=== PATIENT | male | born 1990 | race Caucasian/White ===

== ENCOUNTER 2016-11-14 10:21 | Emergency (ER) | payer OTHER ==
[~2016-11-14] VITALS: Ht 185.4 cm; Wt 113.4 kg
[~2016-11-14 10:21] MED LIST: ADDERALL 10 MG10 MG PO; CELEXA20 MG PO; ENDOCET 5-3251 EACH PO; FLONASE 0.05%50 MCG NASAL; IBUPROFEN 600600 M1 PO; INDOCIN25 MG/5 ML PO; KEPPRA; LIDODERM 5%1 PATC1 TRANSDERM; LOPRESSOR 50 MG50 M1 PO; MEDLISTUNAVAIL IV; MEROPENEM 1 GM V1 GM IV; METHADONE HCL5 MG PO; MOBIC15 MG PO; MUCINEX TA600 MG/TA2 PO; NAPROSYN500 MG PO; NOHOMEMEDICATIONS; NORCO 5-325 TA1 EACH PO; NORFLEX100 MG PO; TRAMADOL 50 MG50 MG PO; TYLENOL325 MG PO; ULTRAM 50MG TAB50 MG PO
[2016-11-14 11:14] LABS: ABSOLUTE NEUTROPHILS 7.4 thou/uL (1.4-8.2); BASOPHILS 0.8 % (0.0-2.0); EOSINOPHILS 2.2 % (0.0-3.0); HEMATOCRIT 47.8 % (42.0-52.0); HEMOGLOBIN 16.5 gm/dL (14.0-18.0); LYMPHOCYTES 16.5 % (24.0-44.0); MCH 27.5 pg (26.0-34.0); MCHC 34.5 g/dL (28.0-37.0); MCV 79.5 fL (80.0-100.0); MONOCYTES 7.9 % (1.0-8.0); PLATELET COUNT 252 thou/uL (150-400); POLYS 72.6 % (36.0-66.0); RBC 6.01 mil/uL (4.50-6.00); RDW 13.1 % (10.5-14.5); WBC 10.2 thou/uL (4.0-11.0)
[2016-11-14 11:15] LABS: MANUAL DIFF NO
[2016-11-14 11:20] LABS: CALCIUM 9.4 mg/dL (8.5-10.1); POTASSIUM 4.4 mmol/L (3.5-5.1)
[2016-11-14 11:24] LABS: URIC ACID* 7.2 mg/dL (2.6-7.2)
[2016-11-14] MEDS ORDERED: FLEXERIL PO (11:39)
== END 2016-11-14 11:53 | disposition home or self-care (01) ==
LOC: ER 10:21
PROVIDERS: Physician Assistant
DX: M25.561 Pain in right knee (principal); M25.562 Pain in left knee; I10 Essential (primary) hypertension; K21.9 Gastro-esophageal reflux disease without esophagitis; F32.9 Major depressive disorder, single episode, unspecified; J45.909 Unspecified asthma, uncomplicated; G40.909 Epilepsy, unspecified, not intractable, without status epilepticus; Z98.890 Other specified postprocedural states; Z88.5 Allergy status to narcotic agent; Z88.1 Allergy status to other antibiotic agents; Z88.8 Allergy status to other drugs, medicaments and biological substances